=== PATIENT | female | born 1970 | race Asian ===

== ENCOUNTER 2017-10-24 08:21 | Emergency (ER) | payer MEDICAID ==
[~2017-10-24] VITALS: Ht 165.1 cm; Wt 63.6 kg
[2017-10-24 08:57] VITALS: BP 120/73
== END 2017-10-24 09:25 | disposition home or self-care (01) ==
LOC: EMS 08:23
DX: S61.012D Laceration without foreign body of left thumb without damage to nail, subsequent encounter (principal); F41.9 Anxiety disorder, unspecified; Z98.890 Other specified postprocedural states; Z91.018 Allergy to other foods; X58.XXXD Exposure to other specified factors, subsequent encounter
CPT/HCPCS: 99281

== ENCOUNTER 2018-06-11 07:34 | Emergency (ER) | payer MEDICAID ==
[~2018-06-11] VITALS: Ht 162.6 cm; Wt 66.8 kg
[2018-06-11] MEDS ORDERED: KETOROLAC TROMETHAMINE 60 MG/2 ML VIAL IM ONE (08:30)
[2018-06-11 09:34] VITALS: BP 124/70
== END 2018-06-11 10:04 | disposition home or self-care (01) ==
LOC: EMS 07:38
DX: S80.11XA Contusion of right lower leg, initial encounter (principal); F41.9 Anxiety disorder, unspecified; Z91.018 Allergy to other foods; V49.59XA Passenger injured in collision with other motor vehicles in traffic accident, initial encounter; Y93.89 Activity, other specified; Y92.488 Other paved roadways as the place of occurrence of the external cause; Y99.8 Other external cause status
CPT/HCPCS: 73590; 96372; 99283; J1885